=== PATIENT | female | born 1940 | race Caucasian/White ===

== ENCOUNTER → 2023-10-25 10:49 | Outpatient (REF) | payer MEDICARE, OTHER, SELFPAY | LOC: HWWDC 10:49 | PROVIDERS: ATTENDING PHYSICIAN Obstetrics & Gynecology; FAMILY PHYSICIAN Internal Medicine | DX: Z12.31 Encounter for screening mammogram for malignant neoplasm of breast (principal) | CPT/HCPCS: 77063; 77067 ==

== ENCOUNTER 2024-06-24 11:37 | Emergency (ER) | payer MEDICARE, OTHER, SELFPAY ==
[2024-06-24 11:42] VITALS: BP 128/83
--- NOTE | 2024-06-24 13:09 | ED.GENMED ---
History of Present Illness
General
Chief Complaint: Back Pain
Time Seen by Provider: 06/24/24 12:45
History of Present Illness
History of Present Illness:
84-year-old female with history of hyperlipidemia presents to the emergency department for evaluation of right lateral low back pain after a fall 2 days ago. She states she lost her balance and fell backward, did not strike her head on the ground.
Pain is worsened since that time. She also felt somewhat lightheaded today. Currently denies any neck or chest pain. Does not take blood thinners. Of note she is chronically on steroids due to polymyalgia but trying to wean off
Past History
Past History
ED Past Medical History: Hypercholesterolemia, Hypothyroidism and Other (IBS, Diverticulitis)
ED Past Surgical History: Gynecological (Hysterectomy, tubal ligation) and Other (Cystocele and Rectocele repair, thyroidectomy)
Social History
Tobacco: Former smoker
Alcohol: Daily
Personal:
Living: with family
Employment: Retired
Family History
Family History: Other (Noncontributory)
Review of Systems
Review of Systems
Allergies reviewed?: Yes
All Other Systems: ROS reviewed and negative except as documented in HPI and ROS
Phy Exam
Physical Exam
Physical Exam:
GEN: Well appearing, NAD, WDWN
HEENT: Oral mucosa moist, no scleral icterus
Cardiac: Regular rate
Lung: No respiratory distress, no tachypnea
MSK: No gross deformity or injuries. No midline lumbar spine tenderness, focal tenderness to the right paraspinous musculature and R oblique musculature, no ecchymosis
Skin: Good color, no pallor or jaundice, no rashes
Neuro: AO x3, moves all extremities freely, lower extremity strength 5 out of 5, ambulates well without difficulty
Psych: Calm, cooperative
Course
Orders/Labs/Results
Orders:
Orders
06/24/24 13:08
CR Lumbar Spine Comp Min 4 Vw* Urgent
Comment:
Reason For Exam: fall, low back pain
06/24/24 13:15
Complete Blood Count/With Diff Urgent
Comprehensive Metabolic Panel Urgent
06/24/24 14:03
Oxycodone [Roxicodone] 5 mg PO NOW STA
06/24/24 14:48
Acetaminophen [Tylenol] 650 mg PO NOW STA
Abnormal Lab Results
06/24/24
13:15
MCH 32.1 H pg
(27.0-31.0)
Absolute Neuts (auto) 7.0 H 10^3/uL
(1.4-6.5)
Neutrophils % 80.1 H %
(42.2-75.2)
Lymphocytes % 13.7 L %
(20.5-51.1)
BUN 24 H mg/dl
(7-17)
Creatinine 0.5 L mg/dL
(0.6-1.0)
Glucose 115 H mg/dl
(70-99)
06/24/24 13:15
06/24/24 13:15
Vital Signs
Initial and Last Documented VS:
Initial Vital Signs
Temp Pulse Resp BP Pulse Ox
97.8 F 70 18 128/83 97
06/24/24 11:42 06/24/24 11:42 06/24/24 11:42 06/24/24 11:42 06/24/24 11:42
Last Documented Vital Signs
Temp Pulse Resp BP Pulse Ox
97.8 F 70 18 128/83 97
06/24/24 11:42 06/24/24 11:42 06/24/24 11:42 06/24/24 11:42 06/24/24 11:42
MDM/Problems Addressed
MDM/Problems Addressed:
X-rays independently interpreted by me showed no evidence for acute lumbar vertebral fracture. She has no abdominal or flank ecchymoses and hemoglobin is normal thus I have a low suspicion for intra-abdominal organ injury. Improved after p.o.
oxycodone. Unable to give NSAIDs due to current steroid use. Discharged in stable condition, recommend outpatient PT
*Critical Care Note
Total Time (30-74mins, 75-104mins- exclusive of procedures): Not Applicable
ED Attending Note
-
Portions of this chart may have been created with voice recognition software.� Occasional wrong word or��sound alike� substitutions may have occurred due to the inherent limitations of voice recognition software.
Discharge Plan
Departure
Patient Disposition: Home (Routine Discharge)
Date of Disposition: 06/24/24
Time of Disposition: 14:49
Patient with high blood pressure during this ER visit?: No
Discharge Problem:
Acute lumbar myofascial strain
Instructions: Low Back Pain (DC)
Prescriptions:
New
oxycodone 5 mg tablet
5 mg PO Q8H PRN (Reason: Pain) Qty: 8 0RF
No Action
pravastatin 40 MG tablet
40 mg PO DAILY
famotidine 40 MG tablet
40 mg PO DAILY
levothyroxine 50 MCG tablet
50 mcg PO DAILY
doxycycline hyclate 20 MG tablet
20 mg PO BID
polyethylene glycol 3350 17 GRAMS powder in packet
17 grams PO DAILY Qty: 15 0RF
levofloxacin 500 MG tablet
500 mg PO DAILY Qty: 7 0RF
metronidazole 500 MG tablet
500 mg PO TID Qty: 21 0RF
Referrals:
UNKNOWN - PT DOES,NOT KNOW [Family Provider] -
Interventions
Interventions:
*Risk Screen - Suicide Last Done: 06/24/24 11:42
*General Assessment Last Done: 06/24/24 11:42
*Neglect/Abuse Screening Last Done: 06/24/24 11:42
*ED COVID-19 Vaccine History Last Done: 06/24/24 11:42
*Nursing Disposition Last Done: 06/24/24 15:24
ED-Musculoskeletal Assessment Last Done: 06/24/24 14:10
Discharge Date and Time
Discharge Date/Time: 06/24/24 15:24
Print Language: UPPER SORBIAN
[2024-06-24 13:41] LABS: % Basophils 0.3 % (0-2); % Eosinophils 0.1 % (0-6); % Immature Granulocytes 0.2 % (0-0.5); % Lymphocytes 13.7 % (20.5-51.1); % Monocytes 5.6 % (1.7-9.3); % Neutrophils 80.1 % (42.2-75.2); Absolute Lymphocytes 1.2 10^3/uL (1.2-3.4); Absolute Monocytes 0.5 10^3/uL (0.1-0.6); Hematocrit 40.4 % (37.0-47.0); Hemoglobin 13.6 g/dL (12.0-16.0); Mean Corp Hgb Conc. 33.7 g/dL (33.0-37.0); Mean Corpuscular Hgb 32.1 pg (27.0-31.0); Mean Corpuscular Volume 95.3 fL (81.0-99.0); Mean Platelet Volume 9.3 fL (7.4-10.4); Nucleated Red Blood Cells % 0 %; Platelet Count 256 10^3/uL (130-400); Red Blood Cell Count 4.24 10^6/uL (4.20-5.40); Red Cell Dist. Width 12.7 % (11.5-14.5); White Blood Cell Count 8.7 10^3/uL (4.8-10.8)
[2024-06-24 13:56] LABS: ALT (SGPT) 20 U/L (0-35); Albumin 3.9 g/dl (3.5-5.0); Blood Urea Nitrogen 24 mg/dl (7-17); Calcium 9.2 mg/dl (8.4-10.2); Carbon Dioxide 30 mmol/L (22-30); Glucose 115 mg/dl (70-99); Potassium 4.3 mmol/L (3.5-5.1); Total Bilirubin 0.7 mg/dl (0.2-1.3); Total Protein 6.4 g/dl (6.3-8.2); eGFR > 60.00
[2024-06-24 13:58] LABS: AST (SGOT) 27 U/L (14-36); Alkaline Phosphatase 63 U/L (38-126); Chloride 102 mmol/L (98-107); Sodium 138 mmol/L (135-145)
[2024-06-24] MEDS: ROXICODONE 5 MG PO (14:09)
[2024-06-24] MEDS: TYLENOL 650 MG PO (14:55)
== END 2024-06-24 15:24 | disposition home or self-care (01) ==
LOC: EMR 11:37
PROVIDERS: Physician Assistant; EMERGENCY PHYSICIAN Emergency Medicine
DX: S39.012A Strain of muscle, fascia and tendon of lower back, initial encounter (principal); W19.XXXA Unspecified fall, initial encounter; E78.00 Pure hypercholesterolemia, unspecified; Z87.891 Personal history of nicotine dependence
CPT/HCPCS: 99284; 72110; 80053; 85025

== ENCOUNTER → 2024-11-13 13:59 | Outpatient (REF) | payer MEDICARE, OTHER, SELFPAY | LOC: HWWDC 13:59 | PROVIDERS: ATTENDING PHYSICIAN Family Medicine | DX: Z12.31 Encounter for screening mammogram for malignant neoplasm of breast (principal) | CPT/HCPCS: 77063; 77067 ==

== ENCOUNTER 2025-03-30 07:34 | Emergency (ER) | payer MEDICARE, OTHER, SELFPAY ==
[2025-03-30 07:44] VITALS: BP 140/94
[2025-03-30 08:31] VITALS: BP 128/55
[2025-03-30 09:46] VITALS: BP 128/55; BMI 26.4
--- NOTE | 2025-03-30 10:25 | ED.GENMED ---
History of Present Illness
General
Chief Complaint: Musculo-Skeletal Complaint
Source: patient
Exam Limitations: none
Time Seen by Provider: 03/30/25 08:36
History of Present Illness
History of Present Illness:
Pain to the right knee for weeks. No trauma. Concerned with some swelling and slight warmth. Mostly concerned about a DVT. No chest pain shortness of breath no fever or chills.
Past History
Past History
ED Past Medical History: Hypercholesterolemia, Hypothyroidism and Other (IBS, Diverticulitis)
ED Past Surgical History: Gynecological (Hysterectomy, tubal ligation) and Other (Cystocele and Rectocele repair, thyroidectomy)
Social History
Tobacco: Former smoker
Alcohol: Daily
Personal:
Living: with family
Employment: Retired
Family History
Family History: Other (Noncontributory)
Review of Systems
Review of Systems
All Other Systems: Not applicable
Constitutional: Denies fever or chills
Phy Exam
Physical Exam
Physical Exam:
General: Nontoxic appearing in no distress
Skin: Warm and dry, no rash
Neuro: Alert, nontoxic, grossly nonfocal
Psychiatric: Good eye contact and appropriate
Musculoskeletal: Very mild swelling to the right knee. No significant warmth. No pain with knee motion. No cord. No thigh swelling or tenderness. Good distal pulses and color.
Course
Orders/Labs/Results
Orders:
Orders
03/30/25 08:29
CR Knee- Right 4 Or More View* Urgent
Reason For Exam: knee pain with swelling
03/30/25 09:34
US Periph Venous LOWER Ext RT Urgent
Comment:
Reason For Exam: swelling
03/30/25 09:44
Lyme Progressive Urgent
03/30/25 10:31
Michele Wrap Right-Treatment ONCE
Vital Signs
Initial and Last Documented VS:
Initial Vital Signs
Temp Pulse Resp BP Pulse Ox
98.0 F 67 16 140/94 98
03/30/25 07:44 03/30/25 07:44 03/30/25 07:44 03/30/25 07:44 03/30/25 07:44
Last Documented Vital Signs
Temp Pulse Resp BP Pulse Ox
98.1 F 60 20 128/55 98
03/30/25 09:46 03/30/25 09:46 03/30/25 09:46 03/30/25 09:46 03/30/25 10:25
MDM/Problems Addressed
Differential Diagnosis Includes:
Very very low suspicion for septic arthritis. She has no pain with knee motion. She has no significant warmth there is no erythema. She has no systemic symptoms. No indication for stat arthrocentesis at this time. Lyme titer was sent although
unlikely. Patient actually did get Lyme vaccine in the past. Arthritis on x-ray. Ultrasound negative. Conservative management and follow-up
*Radiology
Radiology exam reviewed: radiology read reviewed (Degenerative changes) and other (Negative ultrasound)
*Pulse Oximetry
SaO2: 98
Oxygen Mode of Delivery: Room air
Patient hypoxic: no
*Critical Care Note
Total Time (30-74mins, 75-104mins- exclusive of procedures): Not Applicable
ED Attending Note
-
Portions of this chart may have been created with voice recognition software.� Occasional wrong word or��sound alike� substitutions may have occurred due to the inherent limitations of voice recognition software.
Discharge Plan
Departure
Patient Disposition: Home (Routine Discharge)
Date of Disposition: 03/30/25
Time of Disposition: 10:30
Patient with high blood pressure during this ER visit?: Yes
Discharge Problem:
Right knee pain
Instructions: Knee Pain (DC), BLOOD PRESSURE
Prescriptions:
No Action
pravastatin 40 MG tablet
40 mg PO DAILY
famotidine 40 MG tablet
40 mg PO DAILY
levothyroxine 50 MCG tablet
50 mcg PO DAILY
polyethylene glycol 3350 17 GRAMS powder in packet
17 grams PO DAILY Qty: 15 0RF
Referrals:
Rodrigo Hernandez MD [Active, Orthopedics] - Follow up in 5-7 days
Valentín Sultana MD [Family Provider, Internal Medicine] - Follow up in 2-3 days
Activity Restrictions/Additional Instructions:
Follow-up closely with orthopedics
Return sooner with increased pain swelling redness fever or any other concerning symptom
The Lyme titer should be back in 3 to 4 days
Interventions
Interventions:
*Risk Screen - Suicide Last Done: 03/30/25 07:44
*General Assessment Last Done: 03/30/25 07:44
*Neglect/Abuse Screening Last Done: 03/30/25 07:44
*ED- Fall Risk Assessment Last Done: 03/30/25 09:46
*ED COVID-19 Vaccine History Last Done: 03/30/25 09:46
*ED Influenza Vaccine History Last Done: 03/30/25 09:46
*Nursing Disposition Last Done: 03/30/25 11:16
ED-Musculoskeletal Assessment Last Done: 03/30/25 09:46
Discharge Date and Time
Discharge Date/Time: 03/30/25 11:17
Print Language: MAORI
== END 2025-03-30 11:17 | disposition home or self-care (01) ==
LOC: EMR 07:34
PROVIDERS: EMERGENCY PHYSICIAN Emergency Medicine; FAMILY PHYSICIAN Internal Medicine
DX: M25.561 Pain in right knee (principal); R22.41 Localized swelling, mass and lump, right lower limb; E03.9 Hypothyroidism, unspecified; E78.00 Pure hypercholesterolemia, unspecified; Z87.891 Personal history of nicotine dependence; Z90.710 Acquired absence of both cervix and uterus
CPT/HCPCS: 99284; 73564; 86618; 93971